=== PATIENT | male | born 1980 | race Caucasian/White ===

== ENCOUNTER 2023-05-21 07:58 | Emergency (ER) | payer OTHER, SELFPAY ==
[2023-05-21 08:10] VITALS: BP 187/103; PULSE 98; RESP 20; TEMP 36.4; O2SAT 97; BMI 46.6
--- NOTE | 2023-05-21 08:54 | ED.GENADULT ---
HPI - General Adult General Time Seen by Provider: 08:54 <Starla Locke - Last Filed: 05/21/23 10:50> Date Seen: 05/21/23 <Starla Locke - Last Filed: 05/21/23 10:50> Chief complaint: Headache/Migraine <Starla Locke - Last Filed: 05/21/23 10:50> Stated complaint: headache, numbness in face <Starla Locke Last Filed: 05/21/23 10:50> Time Seen by Provider: 05/21/23 08:17 <Starla Locke - Last Filed: 05/21/23 10:50> Source: patient <Starla Locke Last Filed: 05/21/23 10:50> Mode of arrival: ambulatory <Starla Locke Filed: 05/21/23 10:50> Limitations: no limitations <Starla Locke Filed: 05/21/23 10:50> History of Present Illness HPI narrative: 42 yo male with hx of HTN presents with 4 days of R sided frontal headache radiating down his neck. It is currently a 2-3. He took ibuprofen this AM with some relief. He also reports 1 day of R sided facial weakness and numbness of the R side of his toungue. Denies nausea, vomiting, chest pain, blurry vision, watering from his eye, abdominal pain, or shortness of breath that is a change from baseline. Denies a personal hx of stroke or heart attack, notes recent stroke and heart attack in mother. He is not on any blood thinners, has not had any recent falls, and denies a hx of bleeding or clotting disorders. <Starla Locke Last Filed: 05/21/23 10:50> Related Data Home medications: Home Medications Medication Instructions Recorded Confirmed allopurinol 100 mg tablet 100 mg PO DAILY 05/21/23 05/21/23 amlodipine 2.5 mg tablet 2.5 mg PO DAILY 05/21/23 05/21/23 atorvastatin 20 mg tablet 20 mg PO DAILY 05/21/23 05/21/23 lisinopril 05/21/23 metformin 500 mg tablet 500 mg PO DAILY 05/21/23 05/21/23 Previous Rx's Medication Instructions Recorded methylprednisolone 4 mg tablets in See Rx Instructions PO .COMPLEX 05/21/23 a dose pack (Medrol (Salvador)) #21 ea <Starla Locke - Last Filed: 05/21/23 10:50> Allergies/adverse reactions: Allergies Allergy/AdvReac Type Severity Reaction Status Date / Time No Known Drug Allergies Allergy Verified 05/21/23 08:15 <Starla Locke - Last Filed: 05/21/23 10:50> Review of Systems Status of ROS: Reports: 10 or more systems reviewed and unremarkable except as noted in History and below <Starla Locke - Last Filed: 05/21/23 10:50> Narrative: Constitutional: No fevers, no weight gain or loss. Eyes: No discharge. No vision changes. HENT: No congestion, no sore throat, no ear pain. Cardiovascular: No chest pain, no palpitations. Respiratory: No shortness of breath, no wheezes, no cough. Gastrointestinal: No abdominal pain, no vomiting, no diarrhea. Genitourinary: No dysuria, no hematuria. Musculoskeletal: Normal range of motion. Skin: No rashes, no pruritis. Neurological: Right-sided facial altered sensation and mild weakness. Endo/Heme/Allergies: No bruising or bleeding. No polydipsia. Pysch: no suicidality, no anxiety, no insomnia. All other systems reviewed and are negative. <Pradeep Oropeza MD - Last Filed: 05/21/23 11:40> [facility] Social History: Social History Smoking Status: Current every day smoker What tobacco products do you use: cigarettes Smoking packs per day: 0.5 Smoking cigarettes per day: 10.0 Second hand tobacco smoke exposure: No How often do you have a drink containing alcohol: monthly or less How often do you have six or more drinks on one occasion: Never AUDIT-C Alcohol total score: 1 Non-prescribed substance use: denies use service: No <Starla Locke - Last Filed: 05/21/23 10:50> Exam Narrative: Exam Narrative: General: Well appearing male in NAD, seated upright and answering questions appropriately. HEENT: PEERL, EOMi Cardiac: Mildly tachycardic, no murmurs auscultated Resp: Diffuse expiratory wheezes throughout Neuro: CN I, III-, VIII-XI intact CN VII- Decreased strength of R side of face, forehead wrinkles more on L side when opening eyes and cheek does not puff out as far on R side. Smile on R side is less than the L side. CN XII- Tongue deviates to the left Air Conditioning Insulation Installer strength intact b/l UE & LE strength 5/5 b/l Normal finger to nose test Pronator drift test negative <Starla Locke - Last Filed: 05/21/23 10:50> Exam Narrative: Constitutional: Well-developed, well-nourished, no acute distress. HEENT: Normocephalic, atraumatic. Neck: Normal range of motion. Nontender. Supple. Heart: Regular. No murmurs. Normal rate. Intact distal pulses. Lungs: Clear to auscultation. No chest discomfort. No wheezes, rhonchi, or rales. Abdomen: Normal bowel sounds. Nontender. No rebound tenderness. Genitalia: Deferred. Back: No midline tenderness. Normal range of motion. Extremities: Normal range of motion. No injury. Skin: Intact. No rash. Warm. No erythema or pallor. Psychiatric: No suicidality. No anxiety or depression. No insomnia. Nursing notes and vitals signs are reviewed. General: Well appearing male in NAD, seated upright and answering questions appropriately. HEENT: PEERL, EOMi Cardiac: Mildly tachycardic, no murmurs auscultated Resp: Diffuse expiratory wheezes throughout Neuro: CN I, III-, VIII-XI intact CN VII- Decreased strength of R side of face, forehead wrinkles more on L side when opening eyes and cheek does not puff out as far on R side. Smile on R side is less than the L side. CN XII- Tongue deviates to the left Air Conditioning Insulation Installer strength intact b/l UE & LE strength 5/5 b/l Normal finger to nose test Pronator drift test negative <Pradeep Oropeza MD - Last Filed: 05/21/23 11:40> Const: Vital Signs, click to edit/add: Vital Signs - 24 hr 05/21/23 08:10 05/21/23 09:10 05/21/23 10:23 Temperature 97.5 F L Pulse Rate [Right Pulse Oximeter] 98 94 Respiratory Rate 20 20 Blood Pressure [Ri ght Upper Arm] 187/103 H 152/92 H 141/97 H Pulse Oximetry 97 97 Oxygen Delivery Me thod Room Air Room Air <[employer] - Last Filed: 05/21/23 10:50> Vital Signs, click to edit/add: Vital Signs - 24 hr 05/21/23 08:10 05/21/23 09:10 05/21/23 10:23 Temperature 97.5 F L Pulse Rate [Right Pulse Oximeter] 98 94 Respiratory Rate 20 20 Blood Pressure [Ri ght Upper Arm] 187/103 H 152/92 H 141/97 H Pulse Oximetry 97 97 Oxygen Delivery Me thod Room Air Room Air <Pradeep Oropeza MD - Last Filed: 05/21/23 11:40> Course Course ED Course: DDx- [place] Palsy, Ischemic stroke, Hemmorhagic stroke, Cluster headache, migraine headache <VayaFelizan - Last Filed: 05/21/23 10:50> Vital Signs Vital signs: Initial Vital Signs Temperature 97.5 F L 05/21/23 08:10 Temperature Source Temporal Artery Scan 05/21/23 08:10 Pulse Rate 98 05/21/23 08:10 Respiratory Rate 20 05/21/23 08:10 Blood Pressure 187/103 H 05/21/23 08:10 Blood Pressure Mean 131 H 05/21/23 08:10 Blood Pressure Position Sitting 05/21/23 08:10 Pulse Oximetry 97 05/21/23 08:10 Oxygen Delivery Method Room Air 05/21/23 08:10 Vital Signs Temperature 97.5 F L 05/21/23 08:10 Pulse Rate 98 05/21/23 08:10 Respiratory Rate 20 05/21/23 08:10 Blood Pressure 187/103 H 05/21/23 08:10 Pulse Oximetry 97 05/21/23 08:10 Oxygen Delivery Method Room Air 05/21/23 08:10 Temperature 97.5 F L 05/21/23 08:10 Pulse Rate 94 05/21/23 10:23 Respiratory Rate 20 05/21/23 10:23 Blood Pressure 141/97 H 05/21/23 10:23 Pulse Oximetry 97 05/21/23 10:23 Oxygen Delivery Method Room Air 05/21/23 10:23 <[employer] - Last Filed: 05/21/23 10:50> Initial Vital Signs Temperature 97.5 F L 05/21/23 08:10 Temperature Source Temporal Artery Scan 05/21/23 08:10 Pulse Rate 98 05/21/23 08:10 Respiratory Rate 20 05/21/23 08:10 Blood Pressure 187/103 H 05/21/23 08:10 Blood Pressure Mean 131 H 05/21/23 08:10 Blood Pressure Position Sitting 05/21/23 08:10 Pulse Oximetry 97 05/21/23 08:10 Oxygen Delivery Method Room Air 05/21/23 08:10 Vital Signs Temperature 97.5 F L 05/21/23 08:10 Pulse Rate 98 05/21/23 08:10 Respiratory Rate 20 05/21/23 08:10 Blood Pressure 187/103 H 05/21/23 08:10 Pulse Oximetry 97 05/21/23 08:10 Oxygen Delivery Method Room Air 05/21/23 08:10 Temperature 97.5 F L 05/21/23 08:10 Pulse Rate 94 05/21/23 10:23 Respiratory Rate 20 05/21/23 10:23 Blood Pressure 141/97 H 05/21/23 10:23 Pulse Oximetry 97 05/21/23 10:23 Oxygen Delivery Method Room Air 05/21/23 10:23 <Pradeep Oropeza MD - Last Filed: 05/21/23 11:40> Medical Decision Making MDM Narrative Medical decision making narrative: 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 Symptoms started about 4 days ago but worsened in the last day or so. On exam he is showing typical symptoms of Rahman's palsy but his tongue seemed to deviate to the left. He is not showing any other neurologic deficits. The patient did have MRI of the head with and without contrast because of the apparent tongue deviation. This returns with no acute findings. On reexamination the patient open his mouth real wide and stuck his tongue out and it was protruding symmetrically. He feels that it was the numbness in the right side of his face that affected how he initially presented. The patient is able to squeezes eyes closed when using accessory muscles but when blinking he does not sufficiently close his right eye. I advised him to use lubricants and tape his eye shut at night time. The patient did receive a prescription for Medrol Dosepak. He does have diabetes and understands that this will cause his blood glucose to increase temporarily. <Pradeep Oropeza MD - Last Filed: 05/21/23 11:40> Lab Data Labs: Lab Results 05/21/23 Range/Units 10:26 WBC 11.52 H (4.50-11.00) K/uL RBC 4.92 (4.30-5.90) m/uL Hgb 13.9 (13.5-17.5) gm/dL Hct 42.2 (37.0-53.0) % MCV 86 (80-100) fL MCH 28 (26-34) pg MCHC 33 (32-36) gm/dL RDW Coeff of Blayne 13.2 (11.5-15.5) % Plt Count 311 (140-440) K/uL Neut % (Auto) 69.0 (42.0-72.0) % Lymph % (Auto) 21.6 (20-44) % Kidder % (Auto) 6.4 (0.0-11.0) % Eos % (Auto) 1.4 (0.0-7.0) % Baso % (Auto) 0.4 (0.0-3.0) % Neut # (Auto) 7.90 H (1.7-7.0) K/uL Lymph # (Auto) 2.50 (0.90-2.90) K/uL Kidder # (Auto) 0.70 (0.00-0.90) K/UL Eos # (Auto) 0.20 (0.00-0.50) K/uL Baso # (Auto) 0.00 (0.00-0.30) K/uL Abs Immat Gran (auto) 0.10 (0.00-0.30) K/uL Imm/Tot Granulo (auto) 1.2 % ESR 16 H (2-15) mm/hr Sodium 140 (135-149) mmol/L Potassium 4.3 (3.6-5.1) mmol/L Chloride 104 (96-114) mmol/L Carbon Dioxide 23 (20-32) mmol/L Anion Gap 13 (7-15) mEq/L BUN 15 (5-24) mg/dL Creatinine 0.7 (0.5-1.5) mg/dL Estimated Creat Clear 144.84 Estimated GFR 119 ml/min Glucose 102 (60-115) mg/dL Calcium 9.8 (8.4-10.6) mg/dL C-Reactive Protein 0.7 (0.5-1.0) mg/dL <Starla Locke - Last Filed: 05/21/23 10:50> Lab Results 05/21/23 Range/Units 10:26 WBC 11.52 H (4.50-11.00) K/uL RBC 4.92 (4.30-5.90) m/uL Hgb 13.9 (13.5-17.5) gm/dL Hct 42.2 (37.0-53.0) % MCV 86 (80-100) fL MCH 28 (26-34) pg MCHC 33 (32-36) gm/dL RDW Coeff of Blayne 13.2 (11.5-15.5) % Plt Count 311 (140-440) K/uL Neut % (Auto) 69.0 (42.0-72.0) % Lymph % (Auto) 21.6 (20-44) % Kidder % (Auto) 6.4 (0.0-11.0) % Eos % (Auto) 1.4 (0.0-7.0) % Baso % (Auto) 0.4 (0.0-3.0) % Neut # (Auto) 7.90 H (1.7-7.0) K/uL Lymph # (Auto) 2.50 (0.90-2.90) K/uL Kidder # (Auto) 0.70 (0.00-0.90) K/UL Eos # (Auto) 0.20 (0.00-0.50) K/uL Baso # (Auto) 0.00 (0.00-0.30) K/uL Abs Immat Gran (auto) 0.10 (0.00-0.30) K/uL Imm/Tot Granulo (auto) 1.2 % ESR 16 H (2-15) mm/hr Sodium 140 (135-149) mmol/L Potassium 4.3 (3.6-5.1) mmol/L Chloride 104 (96-114) mmol/L Carbon Dioxide 23 (20-32) mmol/L Anion Gap 13 (7-15) mEq/L BUN 15 (5-24) mg/dL Creatinine 0.7 (0.5-1.5) mg/dL Estimated Creat Clear 144.84 Estimated GFR 119 ml/min Glucose 102 (60-115) mg/dL Calcium 9.8 (8.4-10.6) mg/dL C-Reactive Protein 0.7 (0.5-1.0) mg/dL <Pradeep Oropeza MD - Last Filed: 05/21/23 11:40> Imaging Data MRI - head: Radiologist's impression: 1. No evidence of acute intracranial abnormality. 2. A few punctate foci of FLAIR signal abnormality is noted within the right frontal lobe white matter. These are nonspecific, but can be seen in setting of migraine headaches, previous trauma, minor chronic microangiopathy, or other remote insult. <Pradeep Oropeza MD - Last Filed: 05/21/23 11:40> Discharge Plan Discharge Clinical Impression: Rahman's palsy <Starla Locke - Last Filed: 05/21/23 10:50> Patient Disposition: Home, Self-Care <Starla Locke - Last Filed: 05/21/23 10:50> Condition: Stable <Starla Locke - Last Filed: 05/21/23 10:50> Additional Instructions: Take medication as prescribed. Use eyedrops to lubricate the right eye frequently. Is recommended to tape the right eye lid shot at night. Follow up with MD or return if worsening. <Starla Locke - Last Filed: 05/21/23 10:50> Prescriptions: New methylprednisolone [Medrol (Salvador)] 4 mg tablets,dose pack See Rx Instructions .ROUTE .COMPLEX Qty: 21 0RF Rx Instructions: orally per package directions No Action lisinopril metformin 500 mg tablet 500 mg PO DAILY atorvastatin 20 mg tablet 20 mg PO DAILY amlodipine 2.5 mg tablet 2.5 mg PO DAILY allopurinol 100 mg tablet 100 mg PO DAILY <Starla Locke - Last Filed: 05/21/23 10:50> Follow Up/Referrals: Provider,Not a Local [Primary Care Provider] - <Starla Locke Last Filed: 05/21/23 10:50> Stand Alone Forms: MyHealth Info Instructions <Starla Locke - Last Filed: 05/21/23 10:50>
[2023-05-21 09:10] VITALS: BP 152/92
--- NOTE | 2023-05-21 09:22 | CRLHL7_ITS ---
For Patients: As a result of the Century Cures Act, medical imaging exams and procedure reports are released immediately into your electronic medical record. You may view this report before your referring provider. If you have questions, please contact your health care provider. Indication: Right face and tongue deficit Technique: Multiplanar, multisequence MRI of the brain obtained without contrast. Comparison: No relevant comparison studies available at this institution. Findings: The ventricles and cortical sulci appear within normal limits for age. No hydrocephalus or herniation. No acute/subacute ischemia, intracranial hemorrhage or abnormal extra-axial fluid collection. A few punctate foci of FLAIR hyperintensity are noted throughout the supratentorial white matter. Midline structures are unremarkable. Major expected intracranial flow voids are visualized. Bone marrow signal is unremarkable. No suspicious findings in the regional soft tissues. Paranasal sinuses and mastoid air cells have a normal signal. Orbits are unremarkable. Impression: 1. No evidence of acute intracranial abnormality. 2. A few punctate foci of FLAIR signal abnormality is noted within the right frontal lobe white matter. These are nonspecific, but can be seen in setting of migraine headaches, previous trauma, minor chronic microangiopathy, or other remote insult. Dictated by Haylee Arredondo MD @ 05/21/2023 11:10:08 AM (Electronically Signed)
[2023-05-21 10:23] VITALS: BP 141/97; PULSE 94; RESP 20; O2SAT 97
[2023-05-21 10:38] LABS: Eosinophils Percent Auto 1.4 % (0.0-7.0); Hematocrit 42.2 % (37.0-53.0); Hemoglobin* 13.9 gm/dL (13.5-17.5); Lymphocytes Percent Auto 21.6 % (20-44); Mean Corpuscular HGB Conc 33 gm/dL (32-36); Mean Corpuscular Hemoglobin 28 pg (26-34); Mean Corpuscular Volume 86 fL (80-100); Monocytes Percent Auto 6.4 % (0.0-11.0); Platelet Count* 311 K/uL (140-440); RDW Coefficient of Variation % 13.2 % (11.5-15.5); Red Blood Count 4.92 m/uL (4.30-5.90); White Blood Count* 11.52 K/uL (4.50-11.00)
[2023-05-21 10:39] LABS: Basophils Percent Auto 0.4 % (0.0-3.0); Immature Granulocytes Pct Auto 1.2 %
[2023-05-21 10:48] LABS: Slide Review Reflex No
[2023-05-21 10:52] LABS: Chloride* 104 mmol/L (96-114); Potassium* 4.3 mmol/L (3.6-5.1); Sodium* 140 mmol/L (135-149)
[2023-05-21 10:55] LABS: Creatinine* 0.7 mg/dL (0.5-1.5); Est. Creatinine Clearance* 144.84; Estimated Glomerular Filt Rate 119 ml/min
[2023-05-21 10:56] LABS: Anion Gap 13 mEq/L (7-15); Blood Urea Nitrogen* 15 mg/dL (5-24); Calcium* 9.8 mg/dL (8.4-10.6); Carbon Dioxide* 23 mmol/L (20-32); Glucose* 102 mg/dL (60-115)
[2023-05-21 10:59] LABS: C Reactive Protein* 0.7 mg/dL (0.5-1.0)
[2023-05-21 11:18] LABS: Erythrocyte SedimentationRate* 16 mm/hr (2-15)
--- NOTE | 2023-05-21 11:20 | ED.NURSE ---
Did not put IV in pt, lab came down to draw pt blood instead.
== END 2023-05-21 11:45 | disposition home or self-care (01) ==
PROVIDERS: Emergency Provider Emergency Medicine Emergency Medical Services
DX: G51.0 Bell's palsy (principal)
CPT/HCPCS: 36415; 70551; 80048; 85025; 85651; 86140; 99284